=== PATIENT | female | born 1985 | race American Indian/Alaskan Native ===

== ENCOUNTER 2019-06-09 14:45 | Emergency (ER) | payer SELFPAY ==
[2019-06-09 15:33] VITALS: BP 130/66
--- NOTE | 2019-06-09 15:43 | Emergency Department Report ---
Chief Complaint: Urogenital-Female Stated Complaint: VAGINAL DISCOMFORT/PAIN Time Seen by Provider: 06/09/19 15:37 - HPI History of Present Illness: 33 y/o female comes in for rash between legs times 1 week. Request STD screening. Concern for prolapse vaginal. - Exam Vital Signs: Vital Signs 06/09/19 14:50 Temperature 97.5 F L Pulse Rate 87 Respiratory 19 Rate Blood Pressure 130/66 O2 Sat by Pulse 97 Oximetry MSE screening note: Focused history and physical exam performed. Due to findings the following was ordered: 33 y/o female comes in for rash between legs times 1 week. Request STD screening. Concern for prolapse vaginal. Referral to [facility] and [facility]. ED Disposition for MSE Condition: Stable
== END 2019-06-09 15:47 | disposition home or self-care (01) ==
LOC: ED 14:45
DX: R21 Rash and other nonspecific skin eruption (principal)